=== PATIENT | male | born 1990 | race Caucasian/White ===

== ENCOUNTER → 2023-05-05 | Outpatient (CLI) | payer SELFPAY ==
--- NOTE | 2023-05-05 09:00 | VAS_PTH ---
PATIENT: HARJEET ARTEAGA LOC: [facility] U#:[id number] AGE/SX: 32/M ROOM: RE05/05/[address]: Dr. Kirby Lord MD : 1990 BED: DIS: 05/05/2023 SPEC #: [id number] RECD: 05/05/23 11:02 STATUS: PALAK JAVIER #: [id number] BHASKAR: 05/05/23 09:[address]: Kirby Lord DEPT: SURGICAL PATHOLOGY RECD BY: Carla Ross ENTERED: 05/05/23 11:51 SP TYPE: VAS OTHR DR: Britni Primary Care Phys Tissues: A - Vas deferens, NOS B - Vas deferens, NOS Procedures: Surgery Specimen Level II HEADER OPERATION: Bilateral partial vasectomy PRE-OP DIAGNOSIS: Sterilization TISSUE SUBMITTED: A - Right vas deferens, B - Left vas deferens MICROSCOPIC DIAGNOSIS A. Right vas deferens, partial vasectomy: Completely transected segment of vas deferens, no pathologic diagnosis. B. Left vas deferens, partial vasectomy: Completely transected segment of vas deferens, no pathologic diagnosis. DIGNA:fatmata 05/06/2023 MICROSCOPIC DESCRIPTION Slides are reviewed. GROSS DESCRIPTION A - Received is one container designated right vas deferens. The specimen consists of a tubular segment of tamez soft tissue measuring 0.6 cm in length and 0.2 cm in diameter. The specimen is sectioned and submitted entirely in one cassette. B - Received is one container designated left vas deferens. The specimen consists of a tubular segment of tamez soft tissue measuring 0.6 cm in length and 0.2 cm in diameter. The specimen is sectioned and submitted entirely in one cassette. / DIGNA:fatmata 05/05/2023 TC:4 CPT: 36941 x2
== END | disposition home or self-care (01) ==
PROVIDERS: Referring Provider Surgery; Visit Provider Surgery
DX: Z30.2 Encounter for sterilization (principal)
CPT/HCPCS: 88302

== ENCOUNTER → 2023-06-17 | Outpatient (CLI) | payer SELFPAY ==
[2023-06-17 09:23] LABS: Semen Analysis Post Vas PATH REVIEW ONLY
[2023-06-20 09:36] LABS: Pathologist Review Reviewed
== END | disposition home or self-care (01) ==
PROVIDERS: Referring Provider Surgery; Visit Provider Surgery
DX: Z30.09 Encounter for other general counseling and advice on contraception (principal)
CPT/HCPCS: 89321

== ENCOUNTER → 2023-07-02 | Outpatient (CLI) | payer SELFPAY ==
[2023-07-02 15:51] LABS: Semen Analysis Post Vas PATH REVIEW ONLY
[2023-07-04 13:22] LABS: Pathologist Review Reviewed
== END | disposition home or self-care (01) ==
PROVIDERS: Referring Provider Surgery; Visit Provider Surgery
DX: Z30.09 Encounter for other general counseling and advice on contraception (principal)
CPT/HCPCS: 89321

== ENCOUNTER → 2023-11-01 | Outpatient (CLI) | payer SELFPAY ==
--- NOTE | 2023-11-01 14:00 | CYSPIN_PTH ---
PATIENT: HARJEET ARTEAGA LOC: [facility] U#:[id number] AGE/SX: 32/M ROOM: RE11/01/[address]: Dr. Kirby Lord MD : 1990 BED: DIS: 11/01/2023 SPEC #: [id number] RECD: 11/02/23 08:34 STATUS: PALAK JAVIER #: [id number] BHASKAR: 11/01/23 14:[address]: Kirby Lord DEPT: CYTOLOGY RECD BY: Carla Ross ENTERED: 11/02/23 08:34 SP TYPE: CYSPIN FL OTHR DR: No Primary Care Phys Tissues: Cytologic material, NOS Procedures: Pap Stain (control) Special Stain Group II Cytospin Fluid HEADER OPERATION: Vasectomy Status PRE-OP DIAGNOSIS: Post vasectomy status TISSUE SUBMITTED: Seminal fluid for cytology DIAGNOSIS CYTOLOGY Seminal fluid for cytology (cytospin): No spermatozoa identified. AM/mr 11/02/23 CYTOLOGY STUDY Slides are reviewed. CYTOLOGY GROSS Received is 05 ml of thick cloudy fluid labeled with the patient's name and and designated per the requisition as Seminal fluid. Submitted for cytology preparation including cell block. 11/02/2023 TC:5 CPT: 08067
[2023-11-01 14:01] LABS: Cytology, Semen SEE PATHOLOGY REPORT
== END | disposition home or self-care (01) ==
PROVIDERS: Referring Provider Surgery; Visit Provider Surgery
DX: Z30.2 Encounter for sterilization (principal)
CPT/HCPCS: 88108; 88313